=== PATIENT | male | born 1940 | race Caucasian/White ===

== ENCOUNTER 2018-02-04 10:10 | Inpatient (IN) | payer OTHER, SELFPAY ==
[2018-01-27 08:33] VITALS: BMI 33.7
[2018-02-04] VITALS (13 sets, daily range): BP systolic 139–180; BP diastolic 75–101; PULSE 80–102; RESP 12–20; TEMP 36.2–37.4; O2SAT 92–102; BMI 33.7
--- NOTE | 2018-02-04 09:50 | SUR.OPER ---
Prone on spine table, head in foam head support, padded chest and pelvic supports, gel pad at knees, lower legs supported by pillows; nipples, genitalia and toes free of pressure, arms secured on foam padded arm boards at <90 degrees abduction. Tape over blanket at thigh secured to table.
[2018-02-04] MEDS: LACTATED RINGERS 1,000 ML 42 ML IV ×3 (11:06→15:04)
[2018-02-04] MEDS: CEFAZOLIN 2 GM/100 ML FROZ.PIGGY IV ×2 (12:09→20:01)
--- NOTE | 2018-02-04 12:12 | PM.PREOP ---
Pre-operative Note Interval Note Pre-op Check: History & Physical Reviewed by Physician, Exam Performed and History & Physical exam performed today
[2018-02-04] MEDS: BUPIVACAINE 0.25% W/ EPI 50 ML VIAL 30 ML INJ (13:09)
[2018-02-04] MEDS: BUPIVACAINE LIPOSOME 266 MG/20 ML VIAL INJ (13:10)
--- NOTE | 2018-02-04 15:05 | DI.RAD.S_ITS ---
PROCEDURE: XR LUMBAR SPINE 2-3V INDICATIONS: L3-4 TLIF TECHNIQUE: 2 views of the lumbar spine were acquired. COMPARISON: [facility] DEMETRIO Hunt, XR LUMBAR SPINE 2 OR 3 VIEWS, 12/24/2017, 14:54. FINDINGS: Bones: AP and lateral images were obtained intraoperatively showing placement of a disc spacer and transpedicular screws with vertical connecting rods bilaterally at the L3-4 disc level. Soft tissues: Overlying bowel gas pattern is normal. No suspicious soft tissue calcifications. IMPRESSION: Intraoperative imaging of discectomy and posterior fusion L3-4 Dictated by: Stefan Artis M.D. on 02/04/2018 at 15:36 Approved by: Stefan Artis M.D. on 02/04/2018 at 15:37
--- NOTE | 2018-02-04 15:06 | P.OP_ITS ---
Operative Date/Time/Diagnoses - Date of procedure: 02/04/18 Time of procedure: 13:04 Pre-op diagnosis: 1. L2-3, L3-4, L4-5 spinal stenosis 2. Neurogenic claudication 3. 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 L3-4 Postero-lateral and posterior interbody fusion 2. L3-4 interbody cage placement. 3. L3-4 decompressive laminectomy with bilateral facetecomies 4. L3-4 Posterior non-segmental instrumentation 5. L2-3, L4-5 left hemilaminectomy 6. Mcgee of bone marrow from iliac crest 7. Utilization of microsurgical technique and operating microscope Same procedure as scheduled: Yes Indications: Patient has been having chronic back pain and worsening lumbar radiculopathy. Patient failed multiple conservative management with worsening pain weakness and numbness in her lower extremity. Patient has been having difficulty performing activity of daily living. After discussing risks benefits of treatment options, patient elected proceed with surgery. Surgeon: Shamir Smith Php Website Developer: Arminda Galan Click Yes if Unassisted: No Anesthesia Type: General Operative Notes Closure Type: primary Specimen(s): none sent Implants & Drains: Globus Revolve screws and Caliber cages Applied: catheter Blood products transfused: none Procedure in detail: Patient was seen in the preoperative area. Risks and benefits of the surgery was discussed with the patient. Informed consent was obtained from the patient and placed in the chart. Surgical site was marked. Patient was taken to the operative room. General anesthesia was administered. Prophylactic antibiotic was given to the patient less than 30 min before the incision was made. Patient was placed into a prone position on the Haseeb table. Patient's back was then prepped and draped in the sterile fashion. Time- out was performed at this time. Using AP and lateral C-arm imaging the interval between L2-3 L3-4 L4-5 was identified and marked on patient's back. A 2 inch incision 2 in from midline was made on the left side first. The fascia was incised in line with skin incision. Globus MARS retractors was placed inside the incision and docked onto the L3 lamina. Using microsurgical technique and operating microscope, a L3 laminectomy and L3-4 facetectomy was performed using a Kerrison rongeur. The disc space at L3-4 was identified. And a total diskectomy was performed at L3-4 level. The endplates were decorticated using a rasp and shaver. The total diskectomy and decortication was performed at L3-4 level in order to to accomplish a L3-4 fusion. The local bone from the laminectomy and facetectomy was saved for local bone grafting. After the total diskectomy and decortication was completed, Globus viacell bone graft material was combined with local bone that was harvested earlier. At this time, a separate skin is incision was made over the iliac crest. A Jamshidi needle was inserted into the iliac crest through a separate skin incision. 5 cc of bone marrow aspiration was obtained through the separate skin incision using a Jamshidi needle from the iliac crest. The bone marrow aspiration was combined with local bone and the via cell bone grafting material. The bone grafting material was placed into the L3-4 interbody space along with a expandable cage. The cage was expanded to its maximum height using the torque limiting screwdriver. At this time the MARS retractor was redirected over the L2 and L4 lamina. Using microsurgical technique and operating microscope, a L2-3 at L4-5 heminectomy was performed using the Kerrison rongeur. The ligamentum flavum was also resected at the side of the hemilaminectomy for further decompression of the epidural space. At this time a mirror image incision was made on the right side. The fascia was incised in line with the skin incision. Globus MARS retractor was inserted and docked onto the L3-4 posterolateral gutter. Using the power drill, posterior- lateral decortication was performed at L3-4 level until bleeding cortical bone was identified. The remaining bone grafting material was placed into the L3-4 posterior lateral gutter he order to accomplish posterolateral fusion at the L3- 4 level. Using the double C-arm technique, pedicle screws were placed into the L3 and L4 pedicles bilaterally. This was done by placing the Jamshidi needle into the pedicles, then placing the guidewires over the Jamshidi needle, and finally placing the cannulated screws over the guidewires bilaterally. After the pedicle screws were placed, 2 titanium rods was locked into the heads of the pedicle screws using locking caps and torque limiting screwdriver. After all the hardware was placed, and confirmed with AP and lateral C-arm imaging, the wound was then irrigated with sterile normal saline and packed with Ray-Mian gauze for 3 min to accomplish hemostasis. After the gauze was removed the deep fascia was closed with #1 Vicryl suture. The subcutaneous layer was closed with 2-0 Vicryl. The skin was closed with skin harris. Patient tolerated the procedure well. There were no complications. Complications: none Condition: stable Disposition: PACU Plan for aftercare: admit to inpatient hospital
[2018-02-04] MEDS: fentaNYL 100 MCG/2 ML INJ 50 MCG IV (15:08)
[2018-02-04] MEDS: LORazepam 2 MG/ML SYRINGE 0.5 MG IV ×2 (15:11→15:24)
[2018-02-04] MEDS: hydrOXYzine 50 MG/ML INJ 25 MG IM (15:15)
[2018-02-04] MEDS: fentaNYL 100 MCG/2 ML INJ 25 MCG IV ×2 (15:20→15:34)
[2018-02-04] MEDS: OXYCODONE IR 5 MG TABLET 10 MG PO ×2 (17:21→22:28)
[2018-02-04] MEDS: SODIUM CHLORIDE 0.9% 1,000 ML 100 ML IV (17:22)
--- NOTE | 2018-02-04 17:49 | PC.NURSE ---
patient up to floor at 1615 with iv catheter in place and patent, stroud catheter secured and draining to gravity. patient is in semi-fowlers with call light in reach, patient has been oriented to room and call light. patient has been encouraged and verbalizes understanding to not get out of bed by himself, to call for help. patient denies tingling or numbness to ble, demonstrates he can wiggle toes. dressing is c/d/i, patient has been medicated for 8/10 pain and will reassess when appropriate. 93% on RA. patient denies nausea. heart rate is regular, bowel tones are present, and lung sounds are clear. patient's sinuses sound congested when he speaks; patient denies allergies. will continue to monitor.
[2018-02-04] MEDS: hydrOXYzine pamoate 25 MG CAPSULE PO ×2 (18:34→22:28)
[2018-02-04] MEDS: LOVASTATIN 20 MG TABLET 40 MG PO (20:08)
[2018-02-04] MEDS: DOCUSATE 100 MG CAPSULE PO (20:08)
[2018-02-04] MEDS: FINASTERIDE 5 MG TABLET PO (20:08)
[2018-02-04] MEDS: SENNOSIDES 8.6 MG TABLET 17.2 MG PO (20:09)
[2018-02-05] VITALS (7 sets, daily range): BP systolic 123–153; BP diastolic 67–94; PULSE 60–84; RESP 16–18; TEMP 36.4–37.3; O2SAT 95–98
[2018-02-05] MEDS: OXYCODONE IR 5 MG TABLET 10 MG PO ×6 (01:52→20:15)
[2018-02-05] MEDS: hydrOXYzine pamoate 25 MG CAPSULE PO ×5 (01:54→20:15)
[2018-02-05] MEDS: CEFAZOLIN 2 GM/100 ML FROZ.PIGGY IV (04:12)
--- NOTE | 2018-02-05 04:56 | PC.NURSE ---
Assumed care of pt form outgoing shift at 2300, 6015. Pt asleep, arouses to voice. Pt complains of pain. discussed pain medication options as pt had some confusion about when he was supposed to get them and what PRN meant. compliant with med pass and nursing assessments. Pt has not been up. stroud patent. Pt has fluids and water at bedside and drinking water with no complaints of nausea. Pt bed in lowest, locked position. pt repositioned and stated he didn't think that was comfortable, then went back to his back, knees elevated a bit to alleviate pressure to back. discussed and educated pt about log rolling, trapeze use and other spinal precautions. Pt bed alarm on, side rails upx3. belongings and call light within reach. will continue to monitor pt for safety.
[2018-02-05 06:32] LABS: Hematocrit 42.7 % (41-53); Hemoglobin 14.8 g/dL (13.5-17.5)
[2018-02-05] MEDS: hydroCHLOROthiazide 12.5 MG CAPSULE PO (08:42)
[2018-02-05] MEDS: SODIUM CHLORIDE 0.9% FLUSH 10 ML IV ×2 (08:42→21:19)
[2018-02-05] MEDS: LISINOPRIL 20 MG TABLET PO (08:42)
[2018-02-05] MEDS: DOCUSATE 100 MG CAPSULE PO ×2 (08:42→20:21)
--- NOTE | 2018-02-05 11:36 | PM.PNPO.1 ---
Subjective Date Patient Seen: 02/05/18 Time Patient Seen: 11:36 Interval history: Patient's pain is [id number]. No fever chills. No nausea vomiting. Was able to get up with physical therapy using a walker. Patient was able to walk around in his room. Otherwise without complaints this morning. Exam Vital Signs (past 8 hours): Vital Signs - 8 hr 02/05/18 05:15 02/05/18 08:00 Temperature 97.5 F L 97.5 F L Pulse Rate 60 82 Respiratory Rate 16 18 Blood Pressure 142/74 H 145/69 H Pulse Oximetry 96 96 Pulse Oximetry 96 Oxygen Delivery Method Room Air Oxygen Flow Rate 0 Narrative Exam Narrative: Pleasant 77-year-old male resting comfortably in bed in no apparent distress. Dressing is clean, dry and intact. Neurovascular status is intact to the bilateral lower extremities. Objective Labs Result Diagrams: 02/05/18 06:19 Labs: Laboratory Results - last 24 hr 02/05/18 06:19 Hgb 14.8 Hct 42.7 Assessment & Plan Post-op Postoperative Procedures Operation Date: 02/04/18 12:15 Actual Procedures Side Surgeon p L2-3,L3-4 Left Hemilaminectomy, L3-4 TLIF w/Post Instru. Shamir Smith MD Patient postop day 1 status post L3-L4 posterior lateral and posterior interbody fusion, L3-L4 interbody cage placement, L3-L4 decompressive laminectomy with bilateral facetectomies, L3-L4 posterior nonsegmental instrumentation, L2-L3, L4-L5 left hemilaminectomy, harvest of bone marrow from iliac crest, utilization of microsurgical technique and operating microscope. Patient progressing as expected. Mobilized with physical therapy. Likely discharge home in 1-2 days. Time Spent With Patient less than 15 minutes
--- NOTE | 2018-02-05 11:37 | PT.IIE ---
Current Diagnoses Spondylolisthesis, lumbar region (02/04/18) Other spondylosis with radiculopathy, lumbar region (02/04/18) Spinal stenosis, lumbar region with neurogenic claudication (02/04/18) Surgery Performed Operation Date: 02/04/18 12:15 Actual Procedures p L2-3,L3-4 Left Hemilaminectomy, L3-4 TLIF w/Post Instru. - Shamir Smith MD Surgical History (Last Updated 01/27/18 @ 09:14 by Moraima Hewitt RN) History of arthroplasty of both hips (Acute) History of bilateral cataract extraction (Acute) History of vasectomy (Acute) Hx of tonsillectomy (Acute) S/P TURP (Acute) Medical History (Last Updated 01/27/18 @ 09:14 by Moraima Hewitt RN) Bilateral leg pain (Acute) Chronic low back pain (Acute) Enlarged prostate (Acute) HTN (hypertension) (Acute) Hyperlipidemia (Acute) Numbness and tingling of both legs (Acute) Physical Therapy Inpatient Evaluation/Re-Eval M1 PT/OT-IP Prior Functional Status Start: 02/05/18 11:17 Freq: Status: Active Protocol: Document 02/05/18 11:18 [facility] (Rec: 02/05/18 11:37 [facility] [id number]) Medical Review Prior Functional Status Medical History Reviewed Yes Mobility and Gait Modified indep. gait without device. Activities of Daily Living and IADL's Indep. ADLs. Social History Household Members spouse Living Arrangements House Number of Floors (Floors) Two Floors Number of Stairs To Enter/Railing? none Home Environment High Toilet Walk in Shower Home Equipment Front Wheel Walker Hand Held Shower Grab Bars Near Toilet Grab Bars In Shower Additional Social History Comment 1 step up/down on main level with L rail (sunken dining and living room); can live on main level (split-level home). M2 PT-IP Current Condition Start: 02/05/18 11:17 Freq: Status: Active Protocol: Document 02/05/18 11:18 [facility] (Rec: 02/05/18 11:37 [facility] [id number]) Physical Therapy Current Condition Current Condition Evaluation Date 02/05/18 Treatment Diagnosis L3-4 TLIF 02/04/18, impaired mobility and activity tolerance Precautions Lumbar Precautions Log Roll No Twisting Limit Bending Lifting Restriction of 10 lbs Gait Belt above Incisional Area M3 PT-IP Subjective Start: 02/05/18 11:17 Freq: Status: Active Protocol: Document 02/05/18 11:18 [facility] (Rec: 02/05/18 11:37 [facility] [id number]) Subjective Physical Therapy Visit Type Type Initial Evaluation Visit Start Time 10:50 Visit Stop Time 11:18 Total Visit Minutes 28 Number of SYSTEM PLANNING ENGINEER Visits 0 Physical Therapy Visit Comments Patient Comments Pt reports that he has some R buttock pain and low back pain . Therapy Pain Assessment Pain When Pain Assessed At Rest Pain Present Pain Present Pain Reported Location Lower Back Intensity 4 Scale Used Numeric (1 - 10) Description Aching Burning Pain Management Techniques Modification of Treatment Re-positioning M4 PT-IP Mobility and Gait Start: 02/05/18 11:17 Freq: Status: Active Protocol: Document 02/05/18 11:18 [facility] (Rec: 02/05/18 11:37 [facility] [id number]) PT-Bed Mobility Assessment Rolling Type of Rolling Log Rolling Roll to Left Level of Assist Minimal Assistance Supine to Sit Supine to Sit Minimal Assistance 1 Person Assistance Sit to Supine Sit to Supine Moderate Assistance 1 Person Assistance Scooting Scooting to Edge of Bed Standby Assistance Scooting Up and Down in Bed Standby Assistance PT-Transfer Assessment Sit to and From Stand Sit to and from Stand Contact Guard Assistance Equipment Transfer Assistive Device Gait Belt Front Wheeled Walker Transfers Transfer Destination Bed Chair Transfer Technique Stand Step Pivot Transfer Ability Level of Assist Contact Guard Assistance Gait Assessment Gait Gait Assistance Required: Contact Guard Assist Distance (Feet) (feet) 25 Assistive Devices Assistive Device Gait Belt Front Wheeled Walker Gait Deviations General Gait Pattern Antalgic Decreased Stride Length Decreased Feet Clearance Factors Limiting Gait Function Factors Limiting Gait Function Decreased Activity Tolerance Decreased Strength Pain Poor Balance PT-Balance Assessment Sitting Balance and Reactions Static Sitting Balance Ability Good Dynamic Sitting Balance Ability Good Standing Balance and Reactions Static Standing Balance Ability Good Dynamic Standing Balance Ability Fair Device Used FWW M5 PT-IP Objective Assessments Start: 02/05/18 11:17 Freq: Status: Active Protocol: Document 02/05/18 11:18 [facility] (Rec: 02/05/18 11:37 [facility] [id number]) Orientation Orientation/Cognition Level of Alertness Alert Language Function Ability No Deficits Noted Safety Awareness Understands Safety Issues Memory Description No Deficits Noted Strength Lower Extremity Strength Assessment Right Impaired Hip flexion R 4/5 Ankle DF 4+/5 Coordination Assessment Gross Coordination Gross Coordination WNL Sensation Assessment Sensation Gross Sensation WNL Light Touch Intact M6 PT-IP Treatment Start: 02/05/18 11:17 Freq: Status: Active Protocol: Document 02/05/18 11:18 [facility] (Rec: 02/05/18 11:37 [facility] [id number]) Physical Therapy Treatment Education Education Provided Precautions Post-Op Packet Safety M7 PT-IP Assessment and Plan Start: 02/05/18 11:17 Freq: Status: Active Protocol: Document 02/05/18 11:18 [facility] (Rec: 02/05/18 11:37 [facility] [id number]) PT Summary Assessment and Plan Potential Rehabilitation Potential Good Status of Condition at Evaluation Evolving Summary Impairments Pain Strength Balance Bed Mobility Transfers Gait Activity Tolerance Assessment Summary POD #1 L3-4 TLIF. Pt able perform sit<->stand with CGA from chair and bed, and ambulate a short distance this session. Pt requires moderate assistance to get back into bed, which his would be unable to provide at home (she can assist with dressing per pt). Pt will require further ongoing skilled physical therapy during this episode of care, but if pt continues to improve, he may be able to d/c home POD #2 or 3 depending on mobility and pain control. Goals Bed Mobility Goal Standby Assistance Transfer Goal Standby Assistance Gait Goal Independent Front Wheel Walker Gait Distance 150 Other Goals up/down 1 step up/down with FWW Days to Meet Goals 2 Frequency of Treatment Frequency Of Treatment Twice a Day Treatment Plan Physical Therapy Treatment Plan Bed Mobility Training Transfer Training Gait Training Balance Retraining Post Op Education Discharge Planning Hot or Cold Pack Neuromuscular Re-ed Other Recommendations and Next Treatment prog. gait, review precautions Focus , bed mobility. Recommendations To Nursing Amount of Assist Needed 1 Person Assist Discharge Recommendations PT Discharge Recommendations Home with Assistance Provider Visit Care Team Role Provider Type Shamir Smith MD Admit Provider Physician Attending Provider Specialty: Orthopedic Surgery
--- NOTE | 2018-02-05 11:39 | P.PN_ITS ---
Subjective Date Patient Seen: 02/05/18 Time Patient Seen: 11:36 Interval history: Patient's pain is [id number]. No fever chills. No nausea vomiting. Was able to get up with physical therapy using a walker. Patient was able to walk around in his room. Otherwise without complaints this morning. Exam Vital Signs (past 8 hours): Vital Signs - 8 hr 3 02/05/18 05:15 02/05/18 08:00 Temperature 97.5 F L 97.5 F L Pulse Rate 60 82 Respiratory Rate 16 18 Blood Pressure 142/74 H 145/69 H Pulse Oximetry 96 96 Pulse Oximetry 96 Oxygen Delivery Method Room Air Oxygen Flow Rate 0 Narrative Exam Narrative: Pleasant 77-year-old male resting comfortably in bed in no apparent distress. Dressing is clean, dry and intact. Neurovascular status is intact to the bilateral lower extremities. Objective Labs Result Diagrams: 02/05/18 06:19 Labs: Laboratory Results - last 24 hr 02/05/18 06:19 Hgb 14.8 Hct 42.7 Assessment & Plan Post-op Postoperative Procedures Operation Date: 02/04/18 12:15 Actual Procedures Side Surgeon p L2-3,L3-4 Left Hemilaminectomy, L3-4 TLIF w/Post Instru. Shamir Smith MD Patient postop day 1 status post L3-L4 posterior lateral and posterior interbody fusion, L3-L4 interbody cage placement, L3-L4 decompressive laminectomy with bilateral facetectomies, L3-L4 posterior nonsegmental instrumentation, L2-L3, L4-L5 left hemilaminectomy, harvest of bone marrow from iliac crest, utilization of microsurgical technique and operating microscope. Patient progressing as expected. Mobilized with physical therapy. Likely discharge home in 1-2 days. Time Spent With Patient less than 15 minutes
--- NOTE | 2018-02-05 13:51 | CM.DANOTE ---
Met with patient at bedside, introduced myself and role of DC corporate planner; Patient alert, oriented and pleasant. Patient is Post-Op day# 1. Therapy worked with patient this morning and their recommendation is home with assist in 1-2 days; Patient states has help at home, son will be providing transport; Walker available at home; Has f/u appt scheduled, no outpatient therapy; No needs assessed. DC Planning will follow and provide support if any needs arise; Discharge Planning/Care Management CM Discharge Assessment Start: 02/05/18 13:48 Freq: Status: Active Protocol: Document 02/05/18 13:49 TBD (Rec: 02/05/18 13:50 TBD [id number]) Discharge Planning Assessment History Provided By Patient Has Patient been admitted in last 30 No days? Is this patient on Medicare? Yes Is the admit diagnosis the same? No Comment Insurance: [facility] Prior Living Arrangements House Household Members spouse Independent with ADL's Yes Caregiver for Another No DME Already Rented / Owned FWW / Walker Referrals Initiated None needed Discharge Plan Home Transportation Arrangement Patient son will transport patient to home; Review Status In Process Next Review Type Continued Stay Review
--- NOTE | 2018-02-05 15:29 | PT.IPTN ---
Current Diagnoses Spondylolisthesis, lumbar region (02/04/18) Other spondylosis with radiculopathy, lumbar region (02/04/18) Spinal stenosis, lumbar region with neurogenic claudication (02/04/18) Surgery Performed Operation Date: 02/04/18 12:15 Actual Procedures p L2-3,L3-4 Left Hemilaminectomy, L3-4 TLIF w/Post Instru. - Shamir Smith MD Physical Therapy Treatment Note M2 PT-IP Current Condition Start: 02/05/18 11:17 Freq: Status: Active Protocol: Document 02/05/18 14:13 [facility] (Rec: 02/05/18 15:28 [facility] [id number]) Physical Therapy Current Condition Current Condition Evaluation Date 02/05/18 Treatment Diagnosis L3-4 TLIF 02/04/18, impaired mobility and activity tolerance Precautions Lumbar Precautions Log Roll No Twisting Limit Bending Lifting Restriction of 10 lbs Gait Belt above Incisional Area M3 PT-IP Subjective Start: 02/05/18 11:17 Freq: Status: Active Protocol: Document 02/05/18 14:13 [facility] (Rec: 02/05/18 15:28 [facility] [id number]) Subjective Physical Therapy Visit Type Type Treatment Note Visit Start Time 13:44 Visit Stop Time 14:13 Total Visit Minutes 29 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 He wants to go home tomorrow. Therapy Pain Assessment Pain When Pain Assessed At Rest Pain Present Pain Present Pain Reported Location Lower Back Intensity 3 Description Aching Burning Dull Pain Management Techniques Timing of Activity with Medications M4 PT-IP Mobility and Gait Start: 02/05/18 11:17 Freq: Status: Active Protocol: Document 02/05/18 14:13 [facility] (Rec: 02/05/18 15:28 [facility] [id number]) PT-Bed Mobility Assessment Rolling Type of Rolling Log Rolling Roll to Left Level of Assist Standby Assistance Supine to Sit Supine to Sit Standby Assistance Bedrails Sit to Supine Sit to Supine Independent Scooting Scooting to Edge of Bed Independent Scooting Up and Down in Bed Independent PT-Transfer Assessment Sit to and From Stand Sit to and from Stand Standby Assistance Use of Upper Extremities Equipment Transfer Assistive Device Gait Belt Front Wheeled Walker Transfers Transfer Destination Bed Chair Transfer Technique Stand Step Pivot Transfer Ability Level of Assist Standby Assistance Comments Mobility Comments Pt wanted to transfer to chair , then requested back to bed after sitting in chair ( appears he just wanted to practice getting in/out of chair). Gait Assessment Gait Gait Assistance Required: Standby Assistance Distance (Feet) (feet) 200 Assistive Devices Assistive Device Gait Belt Front Wheeled Walker Gait Deviations General Gait Pattern Antalgic Ataxic Decreased Stride Length Decreased Feet Clearance Factors Limiting Gait Function Factors Limiting Gait Function Decreased Activity Tolerance Decreased Strength Pain Poor Balance Comments Gait Comments Mild shaking ataxic gait but no loss of balance. PT-Balance Assessment Sitting Balance and Reactions Static Sitting Balance Ability Normal Dynamic Sitting Balance Ability Normal Standing Balance and Reactions Static Standing Balance Ability Good Dynamic Standing Balance Ability Fair Device Used FWW M5 PT-IP Objective Assessments Start: 02/05/18 11:17 Freq: Status: Active Protocol: Document 02/05/18 11:18 [facility] (Rec: 02/05/18 11:37 [facility] [id number]) Orientation Orientation/Cognition Level of Alertness Alert Language Function Ability No Deficits Noted Safety Awareness Understands Safety Issues Memory Description No Deficits Noted Strength Lower Extremity Strength Assessment Right Impaired Hip flexion R 4/5 Ankle DF 4+/5 Coordination Assessment Gross Coordination Gross Coordination WNL Sensation Assessment Sensation Gross Sensation WNL Light Touch Intact M6 PT-IP Treatment Start: 02/05/18 11:17 Freq: Status: Active Protocol: Document 02/05/18 11:18 [facility] (Rec: 02/05/18 11:37 [facility] [id number]) Physical Therapy Treatment Education Education Provided Precautions Post-Op Packet Safety M7 PT-IP Assessment and Plan Start: 02/05/18 11:17 Freq: Status: Active Protocol: Document 02/05/18 14:13 [facility] (Rec: 02/05/18 15:28 [facility] [id number]) PT Summary Assessment and Plan Summary Progress Towards Goals Progressing Toward Goals Assessment Summary POD #1, second session. Pt able to increased tolerance to gait distance, and gait speed is improving. Pt with mild shaking/ataxia, but no loss of balance. Pt able to get back into bed without assistance. If pain is well controlled, pt likely to be able to d/c home if he performs step up/down and improves his supine to sit log roll without rail or assistance. Goals Bed Mobility Goal Standby Assistance Transfer Goal Standby Assistance Gait Goal Independent Front Wheel Walker Gait Distance 150 Other Goals up/down 1 step up/down with FWW Days to Meet Goals 2 Frequency of Treatment Frequency Of Treatment Twice a Day Treatment Plan Physical Therapy Treatment Plan Bed Mobility Training Transfer Training Gait Training Balance Retraining Post Op Education Discharge Planning Hot or Cold Pack Neuromuscular Re-ed Other Recommendations and Next Treatment step up/down, bed mobility. Focus Recommendations To Nursing Amount of Assist Needed 1 Person Assist Discharge Recommendations PT Discharge Recommendations Home with Assistance
--- NOTE | 2018-02-05 16:03 | OT.IP.EVAL ---
Current Diagnoses Spondylolisthesis, lumbar region (02/04/18) Other spondylosis with radiculopathy, lumbar region (02/04/18) Spinal stenosis, lumbar region with neurogenic claudication (02/04/18) Surgery Performed Operation Date: 02/04/18 12:15 Actual Procedures p L2-3,L3-4 Left Hemilaminectomy, L3-4 TLIF w/Post Instru. - Shamir Smith MD Past Medical History (Last Updated 01/27/18 @ 09:14 by Moraima Hewitt RN) Bilateral leg pain (Acute) Chronic low back pain (Acute) Enlarged prostate (Acute) HTN (hypertension) (Acute) Hyperlipidemia (Acute) Numbness and tingling of both legs (Acute) Surgical History (Last Updated 01/27/18 @ 09:14 by Moraima Hewitt RN) History of arthroplasty of both hips (Acute) History of bilateral cataract extraction (Acute) History of vasectomy (Acute) Hx of tonsillectomy (Acute) S/P TURP (Acute) Occupational Therapy Inpatient Evaluation/Re-Eval M1 PT/OT-IP Prior Functional Status Start: 02/05/18 11:17 Freq: Status: Active Protocol: Document 02/05/18 11:18 [facility] (Rec: 02/05/18 11:37 [facility] [id number]) Medical Review Prior Functional Status Medical History Reviewed Yes Mobility and Gait Modified indep. gait without device. Activities of Daily Living and IADL's Indep. ADLs. Social History Household Members spouse Living Arrangements House Number of Floors (Floors) Two Floors Number of Stairs To Enter/Railing? none Home Environment High Toilet Walk in Shower Home Equipment Front Wheel Walker Hand Held Shower Grab Bars Near Toilet Grab Bars In Shower Additional Social History Comment 1 step up/down on main level with L rail (sunken dining and living room); can live on main level (split-level home). M1 PT/OT-IP Prior Functional Status Start: 02/05/18 15:48 Freq: NEEDED Status: Active Protocol: Document 02/05/18 15:48 [facility] (Rec: 02/05/18 16:02 [facility] [id number]) Medical Review Prior Functional Status Medical History Reviewed Yes Mobility and Gait Modified indep. gait without device. Activities of Daily Living and IADL's Indep. ADLs. Social History Household Members spouse Living Arrangements House Number of Floors (Floors) Two Floors Number of Stairs To Enter/Railing? None, pt walked around in the concrete path to get into the house without steps. Home Environment High Toilet Walk in Shower Home Equipment Front Wheel Walker Hand Held Shower Grab Bars Near Toilet Grab Bars In Shower Additional Social History Comment 1 step up/down on main level with L rail (sunken dining and living room); can live on main level (split-level home). M2 OT-IP Current Condition Start: 02/05/18 15:48 Freq: Status: Active Protocol: Document 02/05/18 15:48 [facility] (Rec: 02/05/18 16:02 [facility] [id number]) Occupational Therapy Current Condition Current Condition Evaluation Date 02/05/18 Treatment Diagnosis Spinal Stenosis Post Operative Precautions Lumbar Precautions Log Roll No Twisting Limit Bending Lifting Restriction of 10 lbs Gait Belt above Incisional Area M3 OT- IP Subjective and Pain Start: 02/05/18 15:48 Freq: Status: Active Protocol: Document 02/05/18 15:48 [facility] (Rec: 02/05/18 16:02 [facility] [id number]) OT- Subjective Occupational Therapy Visit Type Type Initial Evaluation Visit Start Time 15:15 Visit Stop Time 15:50 Total Visit Minutes 35 Occupational Therapy Visit Comments Patient/Caregiver Goals To be able to go home tomorrrow. M4 OT- IP ADL's Start: 02/05/18 15:48 Freq: Status: Active Protocol: Document 02/05/18 15:48 [facility] (Rec: 02/05/18 16:02 [facility] [id number]) OT ADL-Dressing Comments OT Dressing Comments Educated pt to use integration assistant to assist for pants/brief. Pt states will just assist for socks otherwise use slippers and not wear socks at home. OT ADL-Toileting Comments OT Toileting Comments Pt has hi toilet and grab bar at home. Pt educated to stand and to use toilet aid for pericare needs. OT ADL-Bathing Comments OT Bathing Comments Pt to consider shower chair and to assist at home. At this time, pt states to shower at home. M6 OT- IP Functional Cognition Start: 02/05/18 15:48 Freq: Status: Active Protocol: Document 02/05/18 15:48 [facility] (Rec: 02/05/18 16:02 [facility] [id number]) Cognitive Factors Limiting Selfcare Function Cognitive Ability Level of Alertness Alert Patient Orientation Name Age Birthday Month Date Year Day of Week Place Situation Attention Span Ability Capable of Focused Attention Capable of Sustained Attention Ability to Follow Commands Able to Follow Multi-Step Commands Memory Description No Deficits Noted Safety Awareness No Deficits Noted OT- Vision and Hearing OT- Hearing Assessment OT- Hearing Assessment WFL OT- Vision Assessment Visual Acuity WFL M7 OT- IP Mobility and Balance Start: 02/05/18 15:48 Freq: Status: Active Protocol: Document 02/05/18 15:48 [facility] (Rec: 02/05/18 16:02 [facility] [id number]) OT- Bed Mobility Assessment Rolling Type of Rolling Roll to Left Level of Assistance Standby Assistance Supine to Sit Supine to Sit Assist Standby Assistance OT- Balance Assessment Sitting Balance and Reactions Static Sitting Balance Ability Normal Dynamic Sitting Balance Ability Normal M8 OT- IP Objective Assessments Start: 02/05/18 15:48 Freq: Status: Active Protocol: Document 02/05/18 15:48 [facility] (Rec: 02/05/18 16:02 [facility] [id number]) OT Gross Range of Motion Upper Extremity Range of Motion ROM Impairments WFL OT Strength Comments Strength Comments WFL for BUE needs. M9 OT- IP Assessment and Plan Start: 02/05/18 15:48 Freq: Status: Active Protocol: Document 02/05/18 15:48 [facility] (Rec: 02/05/18 16:02 [facility] [id number]) OT Summary Assessment and Plan Potential Rehabilitation Potential Good Analytic Complexity at Evaluation Low Summary OT Impairments Strength Balance Functional Mobility Dressing Toileting Bathing Progress Towards Goals Progressing Toward Goals Assessment Summary Pt doing well and SBA for bed mobility and good understanding for ADl need and need for AED. Pt to have to assist at home. Therefore home with when medically ready. Goals Toileting Goal Standby Assistance Bathing Goal Standby Assistance Toilet Transfer Goal Standby Assistance Shower Transfer Goal Standby Assistance Patient/Caregiver Education Goal Caregiver Independent Assisting Patient OT-Other Goals Shower , family training Frequency of Treatment Frequency Of Treatment Once a Day Treatment Plan OT Treatment Plan ADL Training Patient/Family Education Other Treatment Recommendations and Next Family training Treatment Focus Discharge Recommendations OT Discharge Recommendations Home with Assistance Home Equipment Needs Shower chair
--- NOTE | 2018-02-05 18:51 | PC.NURSE ---
Patient states unable to void since this morning. tried standing up and using BR, unsuccessful. bladder scan showed 608 [address] in bladder. per Dr[address] Charles, replaced stroud catheter, and to be taken out in AM post op day 2 as previously ordered. Stroud replaced without problem, urine is clear and yellow, secured to right thigh. Total amount will be documented. call light in reach, patient resting at this time.
[2018-02-05] MEDS: FINASTERIDE 5 MG TABLET PO (20:20)
[2018-02-05] MEDS: SENNOSIDES 8.6 MG TABLET 17.2 MG PO (20:20)
[2018-02-05] MEDS: LOVASTATIN 20 MG TABLET 40 MG PO (20:20)
[2018-02-06] MEDS: OXYCODONE IR 5 MG TABLET 10 MG PO ×4 (00:16→12:20)
[2018-02-06] MEDS: hydrOXYzine pamoate 25 MG CAPSULE PO ×3 (00:16→12:20)
--- NOTE | 2018-02-06 01:18 | PC.NURSE ---
RN Anali, evening shift stated stroud was replaced as pt did not void. bladder scan showed 600mL. stroud placed and reported 1200 drained total shift. documentation by this director underwriter sales reflects verbal report from anali RN evening shift.
--- NOTE | 2018-02-06 04:20 | PC.NURSE ---
Assumed care of pt form outgoing shift at 2300, 6-16. Pt awake. discussed pain medication options and plan of care, pt verbalized understanding and pt compliant. compliant with med pass and nursing assessments. stroud patent sediment noted in tubing but flows with urine. Pt has water at bedside. Pt bed in lowest, locked position. pt repositioned and is able to roll himself. reinforced importance of log rolling and not twisting at waist. pt stated he wanted to be woken up for pain medication. Pt bed alarm on, side rails upx3. belongings and call light within reach. will continue to monitor pt for safety.
[2018-02-06 05:12] VITALS: BP 107/52; PULSE 73; RESP 16; TEMP 37.3; O2SAT 93
[2018-02-06 06:25] VITALS: O2SAT 97
[2018-02-06 07:59] VITALS: BP 135/81; PULSE 85; RESP 16; TEMP 36.6; O2SAT 94
--- NOTE | 2018-02-06 08:16 | PC.NURSE ---
Removed Rodriguez catheter at 0800. Rodriguez was patent and draining to gravity. 350ml emptied. Patient tolerated removal well. Encouraged pt to increase fluid intake and to call staff to ambulate after breakfast.
[2018-02-06 08:27] VITALS: BP 135/81
[2018-02-06] MEDS: hydroCHLOROthiazide 12.5 MG CAPSULE PO (08:27)
[2018-02-06] MEDS: LISINOPRIL 20 MG TABLET PO (08:27)
[2018-02-06] MEDS: SODIUM CHLORIDE 0.9% FLUSH 10 ML IV (08:28)
[2018-02-06] MEDS: DOCUSATE 100 MG CAPSULE PO (08:28)
--- NOTE | 2018-02-06 09:31 | PT.IPTN ---
Current Diagnoses Spondylolisthesis, lumbar region (02/04/18) Other spondylosis with radiculopathy, lumbar region (02/04/18) Spinal stenosis, lumbar region with neurogenic claudication (02/04/18) Surgery Performed Operation Date: 02/04/18 12:15 Actual Procedures p L2-3,L3-4 Left Hemilaminectomy, L3-4 TLIF w/Post Instru. - Shamir Smith MD Physical Therapy Treatment Note M2 PT-IP Current Condition Start: 02/05/18 11:17 Freq: Status: Active Protocol: Document 02/06/18 09:25 [facility] (Rec: 02/06/18 09:30 [facility] [id number]) Physical Therapy Current Condition Current Condition Evaluation Date 02/05/18 Treatment Diagnosis L3-4 TLIF 02/04/18, impaired mobility and activity tolerance Precautions Lumbar Precautions Log Roll No Twisting Limit Bending Lifting Restriction of 10 lbs Gait Belt above Incisional Area M3 PT-IP Subjective Start: 02/05/18 11:17 Freq: Status: Active Protocol: Document 02/06/18 09:25 [facility] (Rec: 02/06/18 09:30 [facility] [id number]) Subjective Physical Therapy Visit Type Type Treatment Note Visit Start Time 09:00 Visit Stop Time 09:25 Total Visit Minutes 25 Notes Pt had stroud catheter taken out this a.m. Pt able to urinate small amount of urine, but >100 cc output this a.m. during this session. Number of GLASS GLAZIER Visits 0 Physical Therapy Visit Comments Patient Comments Pt notes that he would like to discharge today. Therapy Pain Assessment Pain When Pain Assessed During Mobility Pain Present Pain Present Pain Reported Location Lower Back Intensity 3 Description Aching Burning Dull Pain Management Techniques Re-positioning M4 PT-IP Mobility and Gait Start: 02/05/18 11:17 Freq: Status: Active Protocol: Document 02/06/18 09:25 [facility] (Rec: 02/06/18 09:30 [facility] [id number]) PT-Bed Mobility Assessment Rolling Type of Rolling Log Rolling Roll to Left Level of Assist Independent Supine to Sit Supine to Sit Independent Sit to Supine Sit to Supine Independent Scooting Scooting to Edge of Bed Independent Scooting Up and Down in Bed Independent PT-Transfer Assessment Sit to and From Stand Sit to and from Stand Standby Assistance Use of Upper Extremities Equipment Transfer Assistive Device Gait Belt Front Wheeled Walker Transfers Transfer Destination Bed Transfer Technique Stand Step Pivot Transfer Ability Level of Assist Standby Assistance Gait Assessment Gait Gait Assistance Required: Standby Assistance Distance (Feet) (feet) 240 Assistive Devices Assistive Device Gait Belt Front Wheeled Walker Gait Deviations General Gait Pattern Antalgic Ataxic Decreased Stride Length Decreased Feet Clearance Factors Limiting Gait Function Factors Limiting Gait Function Decreased Activity Tolerance Decreased Strength Pain Poor Balance Stair Climbing Assessment Comments Stair Climbing Comments up/down 1 step with FWW and SBA, VC for technique. PT-Balance Assessment Sitting Balance and Reactions Static Sitting Balance Ability Normal Dynamic Sitting Balance Ability Normal Standing Balance and Reactions Static Standing Balance Ability Good Dynamic Standing Balance Ability Fair Device Used FWW M5 PT-IP Objective Assessments Start: 02/05/18 11:17 Freq: Status: Active Protocol: Document 02/05/18 11:18 [facility] (Rec: 02/05/18 11:37 [facility] [id number]) Orientation Orientation/Cognition Level of Alertness Alert Language Function Ability No Deficits Noted Safety Awareness Understands Safety Issues Memory Description No Deficits Noted Strength Lower Extremity Strength Assessment Right Impaired Hip flexion R 4/5 Ankle DF 4+/5 Coordination Assessment Gross Coordination Gross Coordination WNL Sensation Assessment Sensation Gross Sensation WNL Light Touch Intact M6 PT-IP Treatment Start: 02/05/18 11:17 Freq: Status: Active Protocol: Document 02/06/18 09:25 [facility] (Rec: 02/06/18 09:30 [facility] [id number]) Physical Therapy Treatment Education Education Provided Precautions Post-Op Packet Safety M7 PT-IP Assessment and Plan Start: 02/05/18 11:17 Freq: Status: Active Protocol: Document 02/06/18 09:25 [facility] (Rec: 02/06/18 09:30 [facility] [id number]) PT Summary Assessment and Plan Summary Progress Towards Goals Safe For Discharge Assessment Summary POD #2. Pt able to perform a step up/down with SBA and a FWW (sunken living, dining room in home with rail). He is indep. in bed mobility. At this time, pt appears to be safe to d/c home when medically stable. Goals Bed Mobility Goal Standby Assistance Transfer Goal Standby Assistance Gait Goal Independent Front Wheel Walker Gait Distance 150 Other Goals up/down 1 step up/down with FWW Days to Meet Goals 2 Frequency of Treatment Frequency Of Treatment Twice a Day Treatment Plan Physical Therapy Treatment Plan Bed Mobility Training Transfer Training Gait Training Balance Retraining Post Op Education Discharge Planning Hot or Cold Pack Neuromuscular Re-ed Other Recommendations and Next Treatment cont. gait training. Focus Recommendations To Nursing Amount of Assist Needed 1 Person Assist Discharge Recommendations PT Discharge Recommendations Home with Assistance
--- NOTE | 2018-02-06 10:12 | PC.NURSE ---
Patient ambulated with PT and had an unmeasurable void in BR. While resting, patient states he feels like he has a distended bladder. Bladder scan resulted in approximately 11ml in bladder. Encouraged patient to drink fluids and to call staff to help stand to void. Dr. Charles stated that he would like the patient to void a couple times, independently, before DC this afternoon.
--- NOTE | 2018-02-06 10:41 | P.DS_ITS ---
History of Present Illness Date Patient Seen: 02/06/18 Time Patient Seen: 10:35 Chief complaint: Back pain Narrative: The patient is a 77-year-old man who had a laminectomy and fusion on the day of admission for chronic back pain and stenosis. Discharge Providers Date of admission: 02/04/18 10:10 Consults: 02/04/18 16:55 Consult to Occupational Therapy Evaluate & Treat Comment: Physician Instructions: Evaluate and treat Consult to Physical Therapy Evaluate & Treat Comment: Physician Instructions: Evaluate and Treat Discharge provider: Dany Charles MD Summary Discharge Diagnosis: Spinal stenosis Degenerative disc disease Hospital Course: The patient had a laminectomy and interbody fusion on the day of admission. He has progressed very well from the standpoint of pain control and activity. However he has had difficulty voiding. The Rodriguez was taken out on postop day 1 but had to be replaced because of residual urine volumes. The Rodriguez was discharged this a.m.. He has voided a small amount and had no obvious residual on bladder scanning. We will plan for discharge later this afternoon as long as he is able to void adequately. He denies any other problems. Status at Discharge Cognitive/behavioral status at discharge: Normal Functional status at discharge: independent ambulation Overall status at discharge: patient is progressing back to baseline Time Spent with Patient Less than 30 minutes Exam Vital Signs (past 8 hours): Vital Signs - 8 hr 3 02/06/18 05:12 02/06/18 06:25 02/06/18 07:59 Temperature 99.1 F 97.8 F Pulse Rate 73 85 Respiratory Rate 16 16 Blood Pressure 107/52 L 135/81 H Pulse Oximetry 93 97 94 3 02/06/18 08:27 Temperature Pulse Rate Respiratory Rate Blood Pressure 135/81 H Pulse Oximetry Pulse Oximetry 94 Oxygen Delivery Method Room Air Oxygen Flow Rate 0 Narrative Exam Narrative: The patient is alert and oriented. No obvious distress. Dressing is dry and intact. Strength and sensation are intact throughout lower extremities. Legs are warm and well perfused. Objective Labs Result Diagrams: 02/05/18 06:19 Discharge Plan Discharge Plan Patient Disposition: Home, Self-Care Discharge comment: Patient will be discharged to home later today as long as he is able to void. Discharge Med Rec/Prescriptions Prescriptions: New hydroxyzine pamoate 25 mg Capsule 25 mg PO Q4HR PRN (Reason: Nausea And Vomiting) Qty: 0 RF: 0 oxycodone 5 mg Tablet 10 mg PO Q3HR PRN (Reason: Pain, Severe) Qty: 0 RF: 0 Continue lisinopril-hydrochlorothiazide 20-12.5 mg Tablet 1 tab PO BEDTIME RF: 0 meloxicam 15 mg Tablet 15 mg PO DAILY RF: 0 lovastatin 40 mg Tablet 40 mg PO BEDTIME RF: 0 aspirin [Aspir-81] 81 mg Tablet,Delayed Release (Dr/Ec) 162 mg PO BEDTIME RF: 0 finasteride 5 mg Tablet 5 mg PO BEDTIME RF: 0 Provider Discharge Instructions Diet: Diet as Tolerated Activity: Limited bending and lifting x6 weeks. Discharge Data Attending Provider: Shamir Smith Admit Date/Time: 02/04/18 10:10
== END 2018-02-06 12:51 | disposition home or self-care (01) | DRG 455 ==
PROVIDERS: Admitting Provider Orthopaedic Surgery Orthopaedic Surgery of the Spine; Visit Provider Orthopaedic Surgery Orthopaedic Surgery of the Spine
PROC: 0SG00AJ Fusion of Lumbar Vertebral Joint with Interbody Fusion Device, Posterior Approach, Anterior Column, Open Approach (ICD-10-PCS; principal; 2018-02-04 12:15)
DX: M48.062 Spinal stenosis, lumbar region with neurogenic claudication (principal); M47.26 Other spondylosis with radiculopathy, lumbar region; M43.16 Spondylolisthesis, lumbar region; I10 Essential (primary) hypertension; E78.5 Hyperlipidemia, unspecified; R33.9 Retention of urine, unspecified
CPT/HCPCS: 72100; 76001; 85014; 85018; 97116; 97162; 97165; 97530; C1776; C9290; J0131; J0330; J0690; J1100; J2060; J2250; J2405; J2704; J3010; J3410